=== PATIENT | female | born 1995 | race Asian ===

== ENCOUNTER 2017-05-10 20:23 | Outpatient (CLI) | payer OTHER | END 2017-05-10 21:23 | LOC: LAB 20:23 | DX: R07.89 Other chest pain (principal) | CPT/HCPCS: 84484 ==

== ENCOUNTER 2018-04-14 11:24 | Outpatient (CLI) | payer OTHER | END 2018-04-14 19:48 | disposition home or self-care (01) | LOC: RAD 11:24 | DX: K59.09 Other constipation (principal) ==